=== PATIENT | male | born 1980 | race Caucasian/White ===

== ENCOUNTER 2020-05-16 18:21 | Emergency (ER) | payer SELFPAY ==
[2020-05-16 18:46] LABS: Absolute Lymphocytes (CBC) 1.5 K/uL (0.7-4.9); Basophils % 0.3 % (0-1.3); Hematocrit 47.2 % (39.6-49.0); Lymphocytes % 8.2 % (15.3-44.8); MPV 8.1 fL (7.6-11.3); RBC Red Blood Cell Count 4.93 M/uL (4.33-5.43)
--- NOTE | 2020-05-16 18:46 | RAD REPORT ---
EXAM DESCRIPTION: CT - Ct Stroke Brain Wo Cont - 05/16/2020 6:34 pm CLINICAL HISTORY: HEADACHE COMPARISON: No comparisons TECHNIQUE: Axial 5 millimeter thick images of the head were obtained without IV contrast. All CT scans are performed using dose optimization technique as appropriate and may include automated exposure control or mA/KV adjustment according to patient size. FINDINGS: No intracranial hemorrhage, mass, or cerebral edema. No acute infarction identifiable. No cortical edema or sulcal effacement. No volume loss or underlying white matter disease identifiable. Ventricles are normal. Leon matter-white matter differentiation is preserved. No globe or orbital content abnormality. Visualized portions of the mastoid air cells, paranasal sinuses, and orbits are unremarkable. Findings telephoned to the referring physician 1840 hours. IMPRESSION: No CT evidence of acute intracranial process. Continued concerns for CVA can be addressed with MR imaging.
[2020-05-16 18:57] LABS: Protime INR 1.01
[2020-05-16 18:58] LABS: Potassium 3.6 mmol/L (3.5-5.1)
[2020-05-16] MEDS ORDERED: LEVETIRACETAM 500 MG/5 ML VIAL IV ONE (19:01)
[2020-05-16] MEDS ORDERED: NA CHLORIDE 0.9% 100 ML IV ONE (19:01)
[2020-05-16] MEDS ORDERED: FOLIC ACID 5 MG/ML VIAL ONE (19:31)
[2020-05-16] MEDS ORDERED: NA CHLORIDE 0.9% 1,000 ML ONE ×2 (19:31→21:45)
--- NOTE | 2020-05-16 19:38 | RAD REPORT ---
EXAM DESCRIPTION: RAD - Chest Single View - 05/16/2020 7:25 pm CLINICAL HISTORY: CHEST PAIN COMPARISON: Portable October 2011 TECHNIQUE: AP portable chest image was obtained 05/16/2020 7:25 pm . FINDINGS: Lungs are clear. Heart and vasculature are normal. No measurable pleural effusion and no p neumothorax. No acute bony abnormality seen. No acute aortic findings suspected. IMPRESSION: No acute cardiopulmonary process.
[2020-05-16 20:04] LABS: Urine Blood NEGATIVE (NEG); Urine Glucose NEGATIVE (NEG); Urine Protein NEGATIVE (NEG); Urine Specific Gravity >1.030 (1.005-1.030); Urine pH 5.5 (5.0-7.0)
[2020-05-16 20:16] LABS: Barbiturates NEGATIVE (NEGATIVE); Benzodiazepines NEGATIVE (NEGATIVE); Cocaine NEGATIVE (NEGATIVE); METHAMPHETAM NEGATIVE (NEGATIVE); Methadone NEGATIVE (NEGATIVE); Opiates NEGATIVE (NEGATIVE); Phencyclidine NEGATIVE (NEGATIVE); THC Cannibis NEGATIVE (NEGATIVE)
[2020-05-16 20:20] LABS: CKMB Creatine Kinase MB 2.3 ng/mL (0.3-3.6)
--- NOTE | 2020-05-16 21:12 | RAD REPORT ---
EXAM DESCRIPTION: MRI - Brain W/Wo Cont - 05/16/2020 9:06 pm CLINICAL HISTORY: WEAKNESS, stroke-like symptoms COMPARISON: MRA Head Wo Cont dated 05/16/2020; MRA Neck W/Wo Cont dated 05/16/2020 TECHNIQUE: Sagittal and axial T1-weighted images were obtained. Axial PD/heavily T2-weighted and T2- FLAIR images were obtained along with axial DWI/ADC mapping sequences. Coronal heavily T2 weighted s equence obtained. Axial and coronal post-contrast T1-weighted images were also obtained. A 15 ml Mul tihance contrast following utilized. FINDINGS: No intracranial hemorrhage, mass or acute infarction. There is no edema or shift of midli ne structures. No extra-axial fluid collections. Leon-matter/white matter junction is preserved. Sig nal voids are seen as a normal finding in the major intracranial vessels. Post-contrast images show normal enhancement. No dural thickening. Mastoid air cells and paranasal sinuses are clear. IMPRESSION: Negative contrast enhanced MRI of the Brain.
--- NOTE | 2020-05-16 21:14 | RAD REPORT ---
EXAM DESCRIPTION: MRI - MRA Neck W/Wo Cont - 05/16/2020 9:06 pm CLINICAL HISTORY: Weakness, stroke-like symptoms COMPARISON: None TECHNIQUE: MR angiography of the cervical vasculature performed. Coronal imaging plane acquisition u tilized. A 15 MultiHance contrast volume was utilized. Coronal reformatted images were generated and reviewed. Vertical axis 3D rotational projections obtained using maximum intensity projection protoco l. FINDINGS: Aortic arch is 3 vessel configuration with no origins stenosis. Codominant vertebral arter ies show no origin abnormalities. The bilateral common carotid, internal carotid and vertebral arteri es show no stenosis, dissection or significant vascular finding. IMPRESSION: Negative MRA neck examination.
--- NOTE | 2020-05-16 21:15 | RAD REPORT ---
EXAM DESCRIPTION: MRI - MRA Head Wo Cont - 05/16/2020 9:06 pm CLINICAL HISTORY: Weakness, stroke-like symptoms COMPARISON: None. TECHNIQUE: Axial and coronal 3D [id number] image acquisition was performed. 3D rotational images were generated with source and reconstruction images reviewed. Horizontal and vertical axis rotation al views generated using MIP protocol. FINDINGS: No aneurysm or vascular malformation. No vasculitis, stenosis or suspicious vascular findi ng. Patient has an absent right posterior cerebral artery P1 segment. This is a normal variant. Patie nt has a dominant right posterior communicating artery supplying the more distal right [employer] branches. IMPRESSION: Negative MRA head examination.
[2020-05-16 21:16] LABS: Blood Morphology Comment NOT SEEN (NOT SEEN); Platelet Estimate ADEQ; Urine White Blood Cell Casts OK
--- NOTE | 2020-05-16 21:45 | EDPHYS ---
Physician Documentation [facility] Name: Eder Joshi Age: 39 yrs Sex: Male : 1980 Arrival Date: 05/16/2020 Time: 18:25 Bed 18 Private MD: ED Physician Jasen Blackwell HPI: 05/16 19:37 This 39 yrs old Male presents to ER via EMS with complaints of Numbness Of dilip Face, Numbness Of Arm. 19:37 The patient's problem is reported as paresthesias, an apparent seizure, Episodes lasted dilip an unknown amount of time. Motor activity is described as localized shaking in the upper extremity, No loss of consciousness. Patient was not incontinent of bowel or bladder. Patient was not apneic. weakness, that is generalized. Onset: The symptoms/episode began/occurred just prior to arrival. Duration: The episode is continuous. Context: the episode(s) was witnessed, by a bystander. The symptoms are alleviated by nothing. The symptoms are aggravated by nothing. The patient presents to the emergency department with weakness of the right arm shaking. Onset: The symptoms/episode began/occurred. Context: occurred at work, in the heat. Associated signs and symptoms: Pertinent positives: nausea, weakness. Severity of symptoms: At their worst the symptoms were mild moderate in the emergency department the symptoms are unchanged. Associated signs and symptoms: Pertinent positives: dizziness, weakness. Historical: - Allergies: 18:56 No Known Allergies; ss - Home Meds: 18:56 None [Active]; ss - PMHx: 18:56 Pancreatitis; ss - Immunization history:: Adult Immunizations up to date. - Social history:: Patient uses alcohol, on a daily basis. Smoking status: Patient reports the use of cigarette tobacco products, smokes one pack cigarettes per day. - Family history:: not pertinent. ROS: 19:37 Constitutional: Negative for fever, chills, and weight loss, Eyes: Negative for injury, dilip pain, redness, and discharge, ENT: Negative for injury, pain, and discharge, Neck: Negative for injury, pain, and swelling, Cardiovascular: Negative for chest pain, palpitations, and edema, Respiratory: Negative for shortness of breath, cough, wheezing, and pleuritic chest pain, Abdomen/GI: Negative for abdominal pain, nausea, vomiting, diarrhea, and constipation, Back: Negative for injury and pain, : Negative for injury, bleeding, discharge, and swelling, Skin: Negative for injury, rash, and discoloration, Psych: Negative for depression, anxiety, suicide ideation, homicidal ideation, and hallucinations, Allergy/Immunology: Negative for hives, rash, and allergies, Endocrine: Negative for neck swelling, polydipsia, polyuria, polyphagia, and marked weight changes, Hematologic/Lymphatic: Negative for swollen nodes, abnormal bleeding, and unusual bruising. 19:37 MS/extremity: Positive for right upper ext shaking. Exam: 19:37 Radiologist reports: [facility] 19:37 Head/Face: Normocephalic, atraumatic. Eyes: Pupils equal round and reactive to light, extra-ocular motions intact. Lids and lashes normal. Conjunctiva and sclera are non-icteric and not injected. Cornea within normal limits. Periorbital areas with no swelling, redness, or edema. ENT: Nares patent. No nasal discharge, no septal abnormalities noted. Tympanic membranes are normal and external auditory canals are clear. Oropharynx with no redness, swelling, or masses, exudates, or evidence of obstruction, uvula midline. Mucous membranes moist. Neck: Trachea midline, no thyromegaly or masses palpated, and no cervical lymphadenopathy. Supple, full range of motion without nuchal rigidity, or vertebral point tenderness. No Meningismus. Chest/axilla: Normal chest wall appearance and motion. Nontender with no deformity. No lesions are appreciated. Cardiovascular: Regular rate and rhythm with a normal S1 and S2. No gallops, murmurs, or rubs. Normal PMI, no JVD. No pulse deficits. Respiratory: Lungs have equal breath sounds bilaterally, clear to auscultation and percussion. No rales, rhonchi or wheezes noted. No increased work of breathing, no retractions or nasal flaring. Abdomen/GI: Soft, non-tender, with normal bowel sounds. No distension or tympany. No guarding or rebound. No evidence of tenderness throughout. Back: No spinal tenderness. No costovertebral tenderness. Full range of motion. Male : Normal genitalia with no discharge or lesions. MS/ Extremity: Pulses equal, no cyanosis. Neurovascular intact. Full, normal range of motion. Psych: Awake, alert, with orientation to person, place and time. Behavior, mood, and affect are within normal limits. 19:37 Skin: Appearance: Color: normal in color, Temperature: normal temperature, Moisture: normal moisture, petechiae, not noted, ecchymosis, not noted, flushing, not noted, sunburned. 21:43 ECG was reviewed by the Attending Physician. [facility] Vital Signs: 18:24 BP 131 / 81; Pulse 86; Resp 16; Temp 97.8; Pulse Ox 100% on R/A; Weight 68.04 kg; ss 19:07 BP 122 / 66; Pulse 76; Resp 15 S; Pulse Ox 100% on R/A; ca1 21:33 BP 118 / 81; Pulse 81; Resp 15 S; Pulse Ox 100% on R/A; ca1 NIH Stroke Scale Scores: 19:05 NIHSS Score: 2 ca1 MDM: 19:09 Patient medically screened. [facility] 19:42 Differential diagnosis: CVA, TIA, paralysis, metabolic disorder, drug effects. Data [facility] reviewed: vital signs, nurses notes, lab test result(s), EKG, radiologic studies, CT scan, MRI, plain films. Data interpreted: cardiac monitor technician: rate is 76 beats/min, Pulse oximetry: on room air. Test interpretation: by ED physician or midlevel provider: ECG, plain radiologic studies. Counseling: I had a detailed discussion with the patient and/or guardian regarding: the historical points, exam findings, and any diagnostic results supporting the discharge/admit diagnosis, the presence of at least one elevated blood pressure reading (>120/80) during this emergency department visit, lab results, radiology results. 21:42 ED course: all labs,ct, mri, mra neg, eplained to the patient. [facility] 05/16 18:28 Order name: Basic Metabolic Panel; Complete Time: 19:11 05/16 18:28 Order name: CBC with Diff; Complete Time: 21:40 05/16 18:28 Order name: Protime (+inr); Complete Time: 19:11 05/16 18:28 Order name: Ptt, Activated; Complete Time: 19:11 05/16 18:31 Order name: UDS; Complete Time: 20:20 [facility] 05/16 18:31 Order name: ETOH Level; Complete Time: 19:42 [facility] 05/16 18:28 Order name: CT Stroke Brain w/o Contrast; Complete Time: 19:11 em 05/16 18:28 Order name: Stroke CXR 1 View; Complete Time: 19:42 em 05/16 18:52 Order name: Glucose, Ancillary Testing; Complete Time: 19:11 EDMS 05/16 19:36 Order name: CK; Complete Time: 20:39 dilip 05/16 19:36 Order name: Ckmb; Complete Time: 20:39 dilip 05/16 19:54 Order name: Urine Dipstick--Ancillary (enter results); Complete Time: 20:20 ar5 05/16 21:16 Order name: CBC Smear Scan; Complete Time: 21:40 EDMS 05/16 18:28 Order name: EKG; Complete Time: 18:30 em 05/16 18:28 Order name: Accucheck; Complete Time: 18:49 em 05/16 18:28 Order name: Cardiac monitoring; Complete Time: 18:49 em 05/16 18:28 Order name: EKG - Nurse/Tech; Complete Time: 18:49 em 05/16 18:28 Order name: IV Saline Lock; Complete Time: 18:49 em 05/16 18:28 Order name: Labs collected and sent; Complete Time: 18:49 em 05/16 18:28 Order name: NPO; Complete Time: 18:49 em 05/16 18:28 Order name: O2 Per Protocol; Complete Time: 18:49 em 05/16 18:28 Order name: O2 Sat Monitoring; Complete Time: 18:49 em 05/16 20:18 Order name: MRA Head Wo Cont; Complete Time: 21:40 EDMS 05/16 20:27 Order name: MRA Neck W/Wo Cont; Complete Time: 21:40 EDMS 05/16 20:27 Order name: Brain W/Wo Cont; Complete Time: 21:40 EDMS 05/16 18:28 Order name: Stroke Swallow Screen; Complete Time: 19:05 em EC:43 Rate is 80 beats/min. Rhythm is regular. QRS [place] is Normal. [place] interval is normal. QRS dilip interval is normal. QT interval is normal. No Q waves. T waves are Normal. No ST changes noted. Clinical impression: Normal ECG and No evidence of ischemia. Interpreted by me. Reviewed by me. Administered Medications: 18:56 Drug: Keppra 1000 mg Route: IV; Rate: calculated rate; Site: right antecubital; ca1 19:20 Follow up: IV Status: Completed infusion ca1 19:24 Drug: NS 0.9% 1000 ml Route: IV; Rate: 1 bolus; Site: right antecubital; ca1 20:30 Follow up: Response: No adverse reaction; IV Status: Completed infusion ca1 19:25 Drug: foLIC Acid 1 mg Route: IVPB; Site: right antecubital; ca1 22:04 Follow up: Response: No adverse reaction; IV Status: Completed infusion ca1 21:37 Drug: NS 0.9% 1000 ml Route: IV; Rate: 1 bolus; Site: right antecubital; ca1 22:03 Follow up: Response: No adverse reaction; IV Status: Completed infusion ca1 Point of Care Testing: Blood Glucose: 18:53 Blood Glucose: 101 mg/dL; ca1 Ranges: Critical Glucose Levels:Adult <50 mg/dl or >400 mg/dl <40 mg/dl or >180 mg/dl Disposition: 05/16/20 21:44 Discharged to Home. Impression: Weakness, Heat exhaustion, unspecified, Elevated white blood cell count. - Condition is Stable. - Discharge Instructions: Near-Syncope, Weakness, Fatigue, Near-Syncope, [id number], Heat Exhaustion Information, Weakness, [id number]. - Work release form, Medication Reconciliation Form, Thank You Letter, Antibiotic Education, Prescription Opioid Use form. - Follow up: Private Physician; When: 2 - 3 days; Reason: Recheck today's complaints, Continuance of care, Re-evaluation by your physician. Follow up: Min Quevedo MD; When: 2 - 3 days; Reason: Recheck today's complaints, Re-evaluation by your physician. - Problem is new. - Symptoms have improved. NIH Stroke Scale - NIH Stroke Score Date: 05/16/2020 Time: 19:05 Total Score = 2 1a. Level of Consciousness (LOC) - 0(Alert) 1b. Level of Consciousness (LOC) (Year \T\ Age) - 0(Both) 1c. LOC Commands (Open \T\ Closes Eyes/Electric [employer] Supervisor) - 0(Both) 2. Best Gaze (Lateral Gaze Paresis) - 0(Normal) 3. Visual Field Loss - 0(No visual loss) 4. Facial Palsy - 0(Normal) 5a. Left Arm: Motor (10-second hold) - 0(No drift) 5b. Right Arm: Motor (10-second hold) - 0(No drift) 6a. Left Leg: Motor (5-second hold - always test supine) - 0(No drift) 6b. Right Leg: Motor (5-second hold - always test supine) - 0(No drift) 7. Limb Ataxia (finger/nose \T\ heel/avitia - test with eyes open) - 0(Absent) 8. Sensory Loss (pinprick arms/legs/face) - 1(Mild to moderate loss) 9. Best Language: Aphasia (description/naming/reading) - 1(Mild to moderate aphasia) 10. Dysarthria (speech clarity - read or repeat words) - 0(Normal) 11. Extinction and Inattention (visual/tactile/auditory/spatial/personal) - 0(No abnormality) Initials: ca1 Signatures: Dispatcher [employer] [facility] Jasen Blackwell MD MD cha Rittger, Kevin, MD MD kdr Munoz, Edgar, RN RN em Smirch, Shelby, RN RN ss Amita Mata RN RN ca1 Corrections: (The following items were deleted from the chart) 20:18 18:31 MR STROKE PROTOCOL+MRI.RAD.BRZ ordered. [facility] 22:02 21:44 05/16/2020 21:44 Discharged to Home. Impression: Weakness; Heat ca1 exhaustion, unspecified; Elevated white blood cell count. Condition is Stable. Forms are Medication Reconciliation Form, Thank You Letter, Antibiotic Education, Prescription Opioid Use. Follow up: Private Physician; When: 2 - 3 days; Reason: Recheck today's complaints, Continuance of care, Re-evaluation by your physician. Follow up: Min Quevedo; When: 2 - 3 days; Reason: Recheck today's complaints, Re-evaluation by your physician. Problem is new. Symptoms have improved. dilip
--- NOTE | 2020-05-16 21:45 | ER ---
Nurse's Notes [facility] Name: Eder Joshi Age: 39 yrs Sex: Male : 1980 Arrival Date: 05/16/2020 Time: 18:25 Bed 18 Private MD: Diagnosis: Weakness;Heat exhaustion, unspecified;Elevated white blood cell count Presentation: 05/16 18:24 Chief complaint: Patient states: R sided tremors, decreased sensation to R side of body ss and R occipital/ parietal headache that began 2 hours ago. Pt reports he has been working in the sun a lot lately and today he began not feeling well so he went home and developed hives which disappeared shortly after taking a cool shower. Pt vomited and had an episode of diarrhea which made him feel a little better until he noticed his feet seemed like they had no color then suddenly his symptoms started to develop. Coronavirus screen: Proceed with normal triage. Patient denies a cough. Patient denies shortness of breath or difficulty breathing. Patient denies measured and/or subjective temperature greater than 100.4F prior to today's visit. Patient denies travel on a cruise ship or to a country the [facility] currently lists as an affected area. Patient denies contact with known and/or suspected case of COVID-19. Ebola Screen: Patient denies exposure to infectious person. Patient denies travel to an Ebola-affected area in the 21 days before illness onset. Initial Sepsis Screen: Does the patient meet any 2 criteria? No. Patient's initial sepsis screen is negative. Does the patient have a suspected source of infection? No. Patient's initial sepsis screen is negative. Risk Assessment: Do you want to hurt yourself or someone else? Patient reports no desire to harm self or others. Onset of symptoms was May 16, 2020 at 14:30. 18:24 Method Of Arrival: EMS: [facility] 18:24 Acuity: REAGAN 2 ss 18:56 Care prior to arrival: Medication(s) given: 1000 mg Tylenol, 1000 mL LR and Benadryl 25 ss mg IV initiated. 18 GA, in the right antecubital area, Glucose check: 132. Historical: - Allergies: 18:56 No Known Allergies; ss - Home Meds: 18:56 None [Active]; ss - PMHx: 18:56 Pancreatitis; ss - Immunization history:: Adult Immunizations up to date. - Social history:: Patient uses alcohol, on a daily basis. Smoking status: Patient reports the use of cigarette tobacco products, smokes one pack cigarettes per day. - Family history:: not pertinent. Screenin:05 Abuse screen: Denies threats or abuse. Denies injuries from another. Nutritional ca1 screening: No deficits noted. Tuberculosis screening: No symptoms or risk factors identified. Patient has been NPO before screening. The patient is alert, able to follow commands. The patient does not exhibit slurred or garbled speech The patient is not exhibiting difficulty speaking. The patient does not exhibit difficulty understanding words. The patient is able to swallow own secretions with no drooling or need for suction. Patient tolerated one teaspoon of water. No drooling, immediate coughing, gurgling, or clearing of the throat was noted. The patient tolerated 90mL of water. No drooling, immediate coughing, gurgling, or clearing of the throat was noted. The patient passed the bedside swallow screening. Oral medications may be given as ordered. Contact Physician for further diet orders. Provider notified of bedside swallow screening results: Cyril Claudio MD. Fall Risk IV access (20 points). Assessment: 18:24 Reassessment: CODE STROKE CALLED. ss 19:05 Patient has been NPO before screening. The patient is alert, and able to follow ca1 commands. The patient does not exhibit slurred or garbled speech. The patient is not exhibiting difficulty speaking. The patient does not exhibit difficulty understanding words. The patient is able to swallow own secretions with no drooling or need for suction. Patient tolerated one teaspoon of water. No drooling, immediate coughing, gurgling, or clearing of the throat was noted. The patient passed the bedside swallow screening. Oral medications may be given as ordered. Contact Physician for further diet orders. Provider notified of bedside swallow screening results: Cyril Claudio MD. 19:05 VAN Scoring: Arm Drift: Patients demonstrates NO arm weakness. Patient is VAN Negative. ca1 Aphasia: Expressive aphasia noted. Provider notified of +VAN scoring. 19:05 General: Appears in no apparent distress. uncomfortable, Behavior is calm, cooperative, ca1 appropriate for age. 19:05 Pain: Denies pain. 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 Speech with expressive aphasia noted, pt states, "it's taking time for me to form the words". Facial symmetry appears normal, Pupils are PERRLA, Numbness in right arm and right leg, R side of face Reports numbness. Cardiovascular: Heart tones S1 S2 present Capillary refill < 3 seconds Patient's skin is warm and dry. Rhythm is sinus rhythm. Respiratory: Airway is patent Respiratory effort is even, unlabored, Respiratory pattern is regular, symmetrical. GI: Abdomen is flat, non-distended, Bowel sounds present X 4 quads. Abd is soft and non tender X 4 quads. : No signs and/or symptoms were reported regarding the genitourinary system. EENT: No signs and/or symptoms were reported regarding the EENT system. Derm: Skin is intact, is healthy with good turgor, Skin is pink, warm \\T\\ dry. Musculoskeletal: Circulation, motion, and sensation intact. Capillary refill < 3 seconds, Range of motion: intact in all extremities. 19:07 Reassessment: Patient appears in no apparent distress at this time. Patient and/or ca1 family updated on plan of care and expected duration. Pain level reassessed. Patient is alert, oriented x 3, equal unlabored respirations, skin warm/dry/pink. 19:55 Reassessment: Patient appears in no apparent distress at this time. Patient and/or ca1 family updated on plan of care and expected duration. Pain level reassessed. Patient is alert, oriented x 3, equal unlabored respirations, skin warm/dry/pink. Pt to MRI. 21:33 Reassessment: Patient appears in no apparent distress at this time. Patient is alert, ca1 oriented x 3, equal unlabored respirations, skin warm/dry/pink. PT wheeled to restroom with assist. 21:53 Reassessment: attempt to call pt brother Chip at [phone], no answer at this time. Vital Signs: 18:24 BP 131 / 81; Pulse 86; Resp 16; Temp 97.8; Pulse Ox 100% on R/A; Weight 68.04 kg; ss 19:07 BP 122 / 66; Pulse 76; Resp 15 S; Pulse Ox 100% on R/A; ca1 21:33 BP 118 / 81; Pulse 81; Resp 15 S; Pulse Ox 100% on R/A; ca1 NIH Stroke Scale Scores: 19:05 NIHSS Score: 2 ca1 ED Course: 18:25 Patient arrived in ED. em1 18:30 Cyril Claudio MD is Attending Physician. kdr 18:34 CT Stroke Brain w/o Contrast In Process Unspecified. EDMS 18:35 No provider procedures requiring assistance completed. Maintain EMS IV. Dressing ca1 intact. Good blood return noted. Site clean \\T\\ dry. Gauge \\T\\ site: g18 RAC. 18:48 Amita Mata, ANGELA is Primary Nurse. ca1 18:55 Triage completed. ss 18:56 Arm band placed on right wrist. ss 19:07 Patient has correct armband on for positive identification. Placed in gown. Bed in low ca1 position. Call light in reach. Side rails up X2. laboratory monitor on. Pulse ox on. NIBP on. Warm blanket given. 19:09 Attending Physician role handed off by Cyril Claudio MD dilip 19:09 Jasen Blackwell MD is Attending Physician. dilip 19:25 Stroke CXR 1 View In Process Unspecified. EDMS 21:06 MRA Head Wo Cont In Process Unspecified. EDMS 21:06 MRA Neck W/Wo Cont In Process Unspecified. EDMS 21:06 Brain W/Wo Cont In Process Unspecified. EDMS 21:44 Min Quevedo MD is Referral Physician. dilip 22:02 IV discontinued, intact, bleeding controlled, No redness/swelling at site. Pressure ca1 dressing applied. Administered Medications: 18:56 Drug: Keppra 1000 mg Route: IV; Rate: calculated rate; Site: right antecubital; ca1 19:20 Follow up: IV Status: Completed infusion ca1 19:24 Drug: NS 0.9% 1000 ml Route: IV; Rate: 1 bolus; Site: right antecubital; ca1 20:30 Follow up: Response: No adverse reaction; IV Status: Completed infusion ca1 19:25 Drug: foLIC Acid 1 mg Route: IVPB; Site: right antecubital; ca1 22:04 Follow up: Response: No adverse reaction; IV Status: Completed infusion ca1 21:37 Drug: NS 0.9% 1000 ml Route: IV; Rate: 1 bolus; Site: right antecubital; ca1 22:03 Follow up: Response: No adverse reaction; IV Status: Completed infusion ca1 Point of Care Testing: Blood Glucose: 18:53 Blood Glucose: 101 mg/dL; ca1 Ranges: Outcome: 21:44 Discharge ordered by . dilip 22:02 Discharged to home via wheelchair. ca1 22:02 Condition: stable 22:02 Discharge instructions given to patient, Instructed on discharge instructions, follow up and referral plans. Demonstrated understanding of instructions, follow-up care. 22:02 Patient left the ED. ca1 NIH Stroke Scale - NIH Stroke Score Date: 05/16/2020 Time: 19:05 Total Score = 2 1a. Level of Consciousness (LOC) - 0(Alert) 1b. Level of Consciousness (LOC) (Year \\T\\ Age) - 0(Both) 1c. LOC Commands (Open \\T\\ Closes Eyes/Black Belt) - 0(Both) 2. Best Gaze (Lateral Gaze Paresis) - 0(Normal) 3. Visual Field Loss - 0(No visual loss) 4. Facial Palsy - 0(Normal) 5a. Left Arm: Motor (10-second hold) - 0(No drift) 5b. Right Arm: Motor (10-second hold) - 0(No drift) 6a. Left Leg: Motor (5-second hold - always test supine) - 0(No drift) 6b. Right Leg: Motor (5-second hold - always test supine) - 0(No drift) 7. Limb Ataxia (finger/nose \\T\\ heel/avitia - test with eyes open) - 0(Absent) 8. Sensory Loss (pinprick arms/legs/face) - 1(Mild to moderate loss) 9. Best Language: Aphasia (description/naming/reading) - 1(Mild to moderate aphasia) 10. Dysarthria (speech clarity - read or repeat words) - 0(Normal) 11. Extinction and Inattention (visual/tactile/auditory/spatial/personal) - 0(No abnormality) Initials: ca1 Signatures: Dispatcher [employer] EDMandeep Gallagher, RN Jasen Galvan MD MD cha Rittger, Kevin, MD MD kdr Martinez, Eric em1 Praveena Yan RN RN Amita Mata RN RN ca1
[2020-05-16 22:12] VITALS: TEMP 97.8; O2SAT 100
[2020-05-16 22:14] VITALS: BP 118/81
== END 2020-05-16 22:02 | disposition home or self-care (01) ==
LOC: ER 18:21
DX: R53.1 Weakness (principal); D72.829 Elevated white blood cell count, unspecified; X30.XXXA Exposure to excessive natural heat, initial encounter; F17.210 Nicotine dependence, cigarettes, uncomplicated
CPT/HCPCS: 36415; 70450; 70544; 70549; 70553; 71045; 80048; 80307; 80320; 81003; 82550; 82553; 82947; 85025; 85610; 85730; 93005; 96365; 96366; 96367; 99284; A9577; J1953; J7030